=== PATIENT | female | born 1995 | race Caucasian/White ===

== ENCOUNTER 2017-10-05 16:31 | Emergency (ER) | payer OTHER ==
[2017-10-05 16:40] VITALS: BP 122/79
--- NOTE | 2017-10-05 16:54 | ED Physician Documentation ---
PD HPI LOWER EXT INJURY - Stated complaint Stated Complaint: R LEG NUMBNESS - Chief complaint Chief Complaint: Ext Problem - History obtained from History obtained from: Patient - History of Present Illness PD HPI LOW EXT INJURY LOCATION: Other (She is active duty in the [employer], she was sitting in a funky position today working on something for quite some time and had pressure on her pelvis near the anterior superior iliac spines. She noticed after that that of a well-defined area on the lateral right thigh was insensate. There is no associated weakness, bladder dysfunction or difficulty walking.) Review of Systems Constitutional: reports: Reviewed and negative Throat: reports: Reviewed and negative Cardiac: reports: Reviewed and negative Respiratory: reports: Reviewed and negative PD PAST MEDICAL HISTORY - Present Medications Home Medications: Ambulatory Orders Medication Instructions Recorded Confirmed No Known Home Medications [No 10/05/17 10/05/17 Known Home Medications] - Allergies Allergies/Adverse Reactions: Allergies Allergy/AdvReac Type Severity Reaction Status Date / Time No Known Drug Allergies Allergy Verified 10/05/17 16:39 PD ED PE NORMAL - Vitals Vital signs reviewed: Yes - General General: Alert and oriented X 3, No acute distress - HEENT HEENT: PERRL, EOMI - Neck Neck: Supple, no meningeal sign, No bony TTP - Extremities Extremities: Other (There is a well-defined area where she is insensate over the lateral thigh, with that exception she has equal patellar and Achilles reflexes and normal sensation throughout the legs with normal strength in flexion and extension at the knees and ankles.) - Neuro Neuro: Alert and oriented X 3 Eye Opening: Spontaneous Motor: Obeys Commands Verbal: Oriented GCS Score: 15 - Psych Psych: Normal mood, Normal affect Results - Vitals Vitals: Vital Signs - 24 hr 10/05/17 16:34 Temperature 36.7 C Heart Rate 92 Respiratory 16 Rate Blood Pressure 122/79 O2 Saturation 100 Oxygen O2 Source Room air PD MEDICAL DECISION MAKING - ED course ED course: Her history and physical examination is consistent with meralgia paresthetica and conservative care and watchful waiting were advised. Departure - Departure Disposition: 01 Home, Self Care Clinical Impression: Meralgia paresthetica of right side Condition: Good Record reviewed to determine appropriate education?: Yes Comments: This should get better over time without specific therapy. If not better in 2 weeks follow-up with a neurologist for further evaluation and treatment.
== END 2017-10-05 17:00 | disposition home or self-care (01) ==
LOC: ED 16:31
DX: R20.2 Paresthesia of skin (principal)
CPT/HCPCS: 99282

== ENCOUNTER 2017-11-02 12:20 | Emergency (ER) | payer OTHER ==
[2017-11-02 12:34] VITALS: BP 117/85
--- NOTE | 2017-11-02 13:06 | ED Physician Documentation ---
PD HPI ABD PAIN - Stated complaint Stated Complaint: ABD PX - Chief complaint Chief Complaint: Abd Pain - History obtained from History obtained from: Patient - History of Present Illness Timing - onset: Today (this morning) Timing - duration: Days (1) Timing - details: Gradual onset, Still present, Waxing and waning Quality: Cramping, Aching, Pain Location: Suprapubic, LLQ Radiation: No: Lower back, Left flank, Right flank Improved by: No: Laying still, Position Worsened by: Moving. No: Eating, Breathing, Position, Palpation Associated symptoms: Vaginal bleeding (for past couple of days c/w period.). No : Fever, Nausea, Vomiting, Dysuria, Loss of appetite, Vaginal dc Similar symptoms before: Has not had sx before Recently seen: Not recently seen Review of Systems Constitutional: denies: Fever, Chills, Myalgias Nose: denies: Rhinorrhea / runny nose, Congestion Throat: denies: Sore throat Cardiac: denies: Chest pain / pressure Respiratory: denies: Dyspnea, Cough GI: reports: Abdominal Pain. denies: Abdominal Swelling, Nausea, Vomiting, Diarrhea : reports: LMP (current), Irregular menses (with IUD in place; it was replaced same brand about 3 months ago and has been irregular since. Had infrequent periods with prior IUD.). denies: Dysuria, Frequency, Discharge Skin: denies: Rash, Lesions Musculoskeletal: denies: Neck pain, Back pain Neurologic: denies: Generalized weakness, Near syncope Endocrine: denies: Weight loss Immunocompromised: denies: Immunocompromised PD PAST MEDICAL HISTORY - Past Medical History Cardiovascular: None Respiratory: None Neuro: None Endocrine/Autoimmune: None - Past Surgical History Past Surgical History: No - Present Medications Home Medications: Ambulatory Orders Medication Instructions Recorded Confirmed Naproxen 375 mg PO BID #20 tablet 11/02/17 Tramadol HCl 50 mg PO Q6H PRN #15 tablet 11/02/17 - Allergies Allergies/Adverse Reactions: Allergies Allergy/AdvReac Type Severity Reaction Status Date / Time No Known Drug Allergies Allergy Verified 10/05/17 16:39 - Social History Does the pt smoke?: No Smoking Status: Never smoker Does the pt drink ETOH?: Yes Does the pt have substance abuse?: No - Immunizations Immunizations are current?: Yes PD ED PE NORMAL - Vitals Vital signs reviewed: Yes - General General: Alert and oriented X 3, No acute distress, Well developed/nourished - HEENT HEENT: Pharynx benign - Neck Neck: Supple, no meningeal sign, No adenopathy - Cardiac Cardiac: RRR, No murmur - Respiratory Respiratory: Clear bilaterally - Abdomen Abdomen: Normal bowel sounds, Soft, Non distended, No organomegaly, Other ( tender suprapubic area without guarding nor masses. ) - Female Female : Residential Mortgage Manager present, Other (external normal. Vaginal vault with mild dark blood c/w period. Strings from IUD visible. No endocervical discharge. Mild mucous discharge in vault, consider related to IUD. ) - Rectal Rectal: Deferred - Back Back: No CVA TTP - Derm Derm: Normal color, Warm and dry - Extremities Extremities: No deformity, No tenderness to palpate, No edema, No calf tenderness / cord - Neuro Neuro: Alert and oriented X 3, No motor deficit, Normal speech Results - Vitals Vitals: Oxygen O2 Source Room air - Labs Labs: Microbiology 11/02/17 15:47 Wet Prep - Final Vaginal Laboratory Tests 11/02/17 11/02/17 11/02/17 12:35 12:35 13:06 WBC 5.8 RBC 3.92 L Hgb 12.9 Hct 37.8 MCV 96.5 MCH 32.8 H MCHC 34.0 RDW 12.7 Plt Count 252 MPV 8.3 Neut # 3.3 Lymph # 1.9 [place] # 0.5 Eos # 0.1 Baso # 0.1 Absolute Nucleated RBC 0.00 Nucleated RBC % 0.0 Sodium Potassium Chloride Carbon Dioxide Anion Gap BUN Creatinine Estimated GFR (MDRD) Glucose Calcium Total Bilirubin AST ALT Alkaline Phosphatase Total Protein Albumin Globulin Albumin/Globulin Ratio Lipase Urine Color YELLOW Urine Clarity CLEAR Urine pH 7.0 Ur Specific [place] 1.020 Urine Protein NEGATIVE Urine Glucose (UA) NEGATIVE Urine Ketones NEGATIVE Urine Occult Blood NEGATIVE Urine Nitrite NEGATIVE Urine Bilirubin NEGATIVE Urine Urobilinogen 0.2 (NORMAL) Ur Leukocyte Esterase NEGATIVE Ur Microscopic Review NOT INDICATED Urine Culture Comments NOT INDICATED Urine HCG, Qual NEGATIVE C.trachomatis RNA (TMA) NOT DETECTED Chlamydia/GC Comment SEE NOTE N.gonorrhoeae RNA (TMA) NOT DETECTED 11/02/17 13:06 WBC RBC Hgb Hct MCV MCH MCHC RDW Plt Count MPV Neut # Lymph # [place] # Eos # Baso # Absolute Nucleated RBC Nucleated RBC % Sodium 137 Potassium 3.3 L Chloride 104 Carbon Dioxide 24 Anion Gap 9.0 BUN 11 Creatinine 0.9 Estimated GFR (MDRD) 78 L Glucose 88 Calcium 8.9 Total Bilirubin 1.4 H AST 18 ALT 13 Alkaline Phosphatase 40 L Total Protein 7.6 Albumin 4.6 Globulin 3.0 Albumin/Globulin Ratio 1.5 Lipase 20 L Urine Color Urine Clarity Urine pH Ur Specific [place] Urine Protein Urine Glucose (UA) Urine Ketones Urine Occult Blood Urine Nitrite Urine Bilirubin Urine Urobilinogen Ur Leukocyte Esterase Ur Microscopic Review Urine Culture Comments Urine HCG, Qual C.trachomatis RNA (TMA) Chlamydia/GC Comment N.gonorrhoeae RNA (TMA) PD MEDICAL DECISION MAKING - ED course Complexity details: reviewed results (lab taking awhile, so patient discharged prior to wet prep results. ), considered differential, d/w patient Departure - Departure Disposition: 01 Home, Self Care Clinical Impression: Lower abdominal pain Condition: Stable Record reviewed to determine appropriate education?: Yes Instructions: ED Abdominal Pain Unkn Cause Follow-Up: Prerna Boland MD [Primary Care Provider] - Prescriptions: Naproxen 375 mg PO BID #20 tablet Tramadol HCl 50 mg PO Q6H PRN #15 tablet PRN Reason: Pain Comments: Drink lots of fluids. Rest off work today possibly tomorrow. Use some naproxen or ibuprofen twice daily for the next 7-10 days. Add Tylenol and/or tramadol if needed for pain. Follow-up with your primary care if not improved over the next couple of days. At this point I do not have the reason for your pains. There is no signs of more significant cause or serious cause at this time. It does not seem like early appendicitis based on location. Your ultrasound is normal without any cysts or structural abnormalities. The ultrasound showed the IUD to be present in the lower uterus. There is no signs of urinary or vaginal infection. This may be just inflammatory of the uterus or possibly some ovarian pain. I presume this will improve over the next couple of days. Forms: Activity restrictions Discharge Date/Time: 11/02/17 16:15
[2017-11-02 13:14] LABS: BASOPHILS # (AUTO) 0.1 10^3/uL (0.0-0.1); EOSINOPHILS # (AUTO) 0.1 10^3/uL (0.0-0.7); EOSINOPHILS % (AUTO) 0.9 %; HGB - HEMOGLOBIN 12.9 g/dL (12.0-16.0); LYMPHOCYTES # (AUTO) 1.9 10^3/uL (1.5-3.5); LYMPHOCYTES % (AUTO) 32.5 %; MEAN CORPUSCULAR HEMOGLOBIN 32.8 pg (27.0-31.0); MEAN CORPUSCULAR VOLUME 96.5 fL (81.0-99.0); MEAN PLATELET VOLUME 8.3 fL (7.9-10.8); MONOCYTES # (AUTO) 0.5 10^3/uL (0.0-1.0); MONOCYTES % (AUTO) 8.5 %; NEUTROPHILS # (AUTO) 3.3 10^3/uL (1.5-6.6); NEUTROPHILS % (AUTO) 57.1 %; PLT - PLATELET COUNT 252 10^3/uL (130-450); RED BLOOD COUNT 3.92 10^6/uL (4.20-5.40); RED CELL DISTRIBUTION WIDTH 12.7 % (12.0-15.0); WHITE BLOOD COUNT 5.8 x10^3/uL (4.8-10.8)
[2017-11-02 13:21] LABS: BILIRUBIN,URINE NEGATIVE (NEGATIVE); GLUCOSE, URINE (UA) NEGATIVE (NEGATIVE); KETONES,URINE (UA) NEGATIVE (NEGATIVE); LEUKOCYTE ESTERASE, URINE NEGATIVE (NEGATIVE); NITRITE,URINE NEGATIVE (NEGATIVE); OCCULT BLOOD,URINE NEGATIVE (NEGATIVE); PROTEIN,URINE NEGATIVE (NEGATIVE); UROBILINOGEN,URINE 0.2 (NORMAL) E.U./dL (NORMAL)
[2017-11-02 13:24] LABS: CLARITY,URINE CLEAR (CLEAR); HCG UR QUAL NEGATIVE
[2017-11-02 13:24] LABS: ALBUMIN 4.6 g/dL (3.2-5.5); ALBUMIN/GLOBULIN RATIO 1.5 (1.0-2.2); BILIRUBIN,TOTAL 1.4 mg/dL (0.2-1.0); CALCIUM 8.9 mg/dL (8.5-10.3); CREATININE 0.9 mg/dL (0.4-1.0); TOTAL PROTEIN 7.6 g/dL (6.7-8.2)
[2017-11-02] MEDS ORDERED: ACETAMINOPHEN 325 MG TABLET PO STA (13:26)
[2017-11-02] MEDS ORDERED: IBUPROFEN 400 MG TABLET PO STA (13:26)
--- NOTE | 2017-11-02 15:07 | Ultrasound Report ---
PELVIC ULTRASOUND: 11/02/2017 CLINICAL INDICATION: Lower abdominal pain. TECHNIQUE: Transabdominal pelvic ultrasound performed for global evaluation. Transvaginal pelvic ultrasound performed for detailed evaluation. Real-time scanning performed and static images obtained with Doppler. FINDINGS: The uterus is anteverted, measuring 7.4 x 3.9 x 3.5 cm. The endometrium measures 3 mm. There is an IUD in the lower uterine segment. No focal myometrial lesion is present. The ovaries are normal, with the right measuring 3.6 x 2.6 x 2.0 cm, the left measuring 3.1 x 2.2 x 2.2 cm. Normal bilateral ovarian flow is present. Trace free fluid is present. IMPRESSION: IUD IN THE LOWER UTERINE SEGMENT. NORMAL BILATERAL OVARIES. TD: 11/02/2017 15:01
== END 2017-11-02 16:15 | disposition home or self-care (01) ==
LOC: ED 12:20
DX: R10.30 Lower abdominal pain, unspecified (principal); Z97.5 Presence of (intrauterine) contraceptive device
CPT/HCPCS: 36415; 76830; 76856; 80053; 81003; 81025; 83690; 85025; 87210; 87491; 87591; 93976; 99283; A9270; 81001; 87086

== ENCOUNTER 2018-06-29 13:55 | Emergency (ER) | payer OTHER ==
[2018-06-29 13:59] VITALS: BP 134/79
--- NOTE | 2018-06-29 14:02 | ED Physician Documentation ---
PD HPI SKIN - Stated complaint Stated Complaint: GROIN PX - Chief complaint Chief Complaint: General - History obtained from History obtained from: Patient - History of Present Illness Timing - onset: How many days ago (2-3) Timing - duration: Days Timing - details: Abrupt onset, Still present Location: Other (left inguinal) Quality / character: Painful, Swelling Associated symptoms: No: Fever, N/V/D, Urinary sx Similar symptoms before: Has not had sx before Recently seen: Not recently seen Review of Systems Constitutional: denies: Fever, Chills Nose: denies: Rhinorrhea / runny nose, Congestion Throat: denies: Sore throat Respiratory: denies: Cough GI: denies: Abdominal Pain, Vomiting, Diarrhea : denies: Dysuria, Frequency, Discharge Skin: reports: Rash (mild red bumps where she had shaven in pubis area, but no purulence.) PD PAST MEDICAL HISTORY - Past Medical History Cardiovascular: None Respiratory: None Neuro: None Endocrine/Autoimmune: None GI: None WOOD SHOP TEACHER: None : None Psych: Other Musculoskeletal: None Derm: None - Past Surgical History Past Surgical History: No - Present Medications Home Medications: Ambulatory Orders Medication Instructions Recorded Confirmed Cephalexin [Keflex] 500 mg PO Q6H #28 capsule 06/29/18 Mupirocin 1 applic TP TID #15 g 06/29/18 Naproxen 500 mg PO BID #20 tablet 06/29/18 - Allergies Allergies/Adverse Reactions: Allergies Allergy/AdvReac Type Severity Reaction Status Date / Time No Known Drug Allergies Allergy Verified 06/29/18 13:59 - Social History Does the pt smoke?: No Smoking Status: Never smoker Does the pt drink ETOH?: Yes Does the pt have substance abuse?: No - Immunizations Immunizations are current?: Yes - POLST Patient has POLST: No PD ED PE NORMAL - Vitals Vital signs reviewed: Yes - General General: Alert and oriented X 3, No acute distress, Well developed/nourished - HEENT HEENT: Moist mucous membranes, Pharynx benign - Neck Neck: Supple, no meningeal sign, No adenopathy - Cardiac Cardiac: RRR, No murmur - Respiratory Respiratory: Clear bilaterally - Abdomen Abdomen: Soft, Non tender - Female Female : Deferred, Other (left inguinal area with rounded, firm, tender 1.5 cm mass moveable, c/w lymph node, and bedside U/S looking c/w lymph node. The upper pubic hair area is shaven with several small red bumps but no abscess appearance. Right inguinal area is normal. ) Results - Vitals Vitals: Vital Signs - 24 hr 06/29/18 13:57 Temperature 36.2 C L Heart Rate 95 Respiratory 18 Rate Blood Pressure 134/79 H O2 Saturation 100 Oxygen O2 Source Room air PD MEDICAL DECISION MAKING - ED course Complexity details: considered differential (Consider possibilities of abscess or lymphadenopathy or hernia. On exam it seems consistent with a lymph node.), d/w patient Departure - Departure Disposition: Home, Self Care Clinical Impression: Inguinal lymphadenopathy Condition: Stable Record reviewed to determine appropriate education?: Yes Instructions: ED Lymphangitis Follow-Up: Prerna Boland MD [Primary Care Provider] - Prescriptions: Cephalexin [Keflex] 500 mg PO Q6H #28 capsule Mupirocin 1 applic TP TID #15 g Naproxen 500 mg PO BID #20 tablet Comments: This looks like an enlarged and tender lymph node which typically will be caused by a local infection. It likely is a skin infection from the shaving in the pubis area. Use some warm moist towels to the lymph node area a few times a day. Use some mupirocin antibiotic ointment on the red bumps in the shaved area. Take cephalexin oral antibiotic as directed. This should improve over the next few days. You can add an anti-inflammatory to help with some of the swelling of the lymph node in the tenderness. Recheck if not improved over the next few days or return sooner if worsening.
[2018-06-29] MEDS ORDERED: cephALEXin 250 MG CAPSULE PO STA (14:24)
[2018-06-29] MEDS ORDERED: NAPROXEN 250 MG TABLET PO STA (14:25)
== END 2018-06-29 14:41 | disposition home or self-care (01) ==
LOC: ED 13:55
DX: R59.0 Localized enlarged lymph nodes (principal)
CPT/HCPCS: 99283; A9270